=== PATIENT | female | born 1960 | race Caucasian/White ===

== ENCOUNTER 2022-03-08 17:25 | Emergency (ER) | payer OTHER, BC ==
[2022-03-08] MEDS ORDERED: Ketorolac 30 MG/ML SDV IM ONE (18:07)
[2022-03-08] MEDS ORDERED: Ondansetron 4 MG Tab.DIS PO ONE (18:07)
[2022-03-08] MEDS ORDERED: Cyclobenzaprine 10 MG Tab PO ONE (18:08)
== END 2022-03-08 20:43 | disposition home or self-care (01) ==
LOC: JP.ED 17:25
DX: S20.212A Contusion of left front wall of thorax, initial encounter (principal); M54.2 Cervicalgia; J45.909 Unspecified asthma, uncomplicated; I10 Essential (primary) hypertension; E03.9 Hypothyroidism, unspecified; Z86.16 Personal history of COVID-19; Z79.899 Other long term (current) drug therapy; Z88.8 Allergy status to other drugs, medicaments and biological substances; Z91.018 Allergy to other foods; Z88.6 Allergy status to analgesic agent; W18.39XA Other fall on same level, initial encounter
CPT/HCPCS: 71250; 72125; 74176; 96372; 99282; 99283; A9270; J1885; Q0162

== ENCOUNTER 2022-09-20 13:55 | Emergency (ER) | payer SELFPAY ==
[2022-09-20] MEDS ORDERED: Sodium Chloride 0.9% 10 ML Syringe FLUSH PRN (14:10)
[2022-09-20 14:45] LABS: TROPONIN I HIGH SENSITIVITY 4.2 pg/mL (<=60.3)
== END 2022-09-20 17:10 | disposition home or self-care (01) ==
LOC: JP.ED 13:55
DX: R07.89 Other chest pain (principal); I10 Essential (primary) hypertension; E03.9 Hypothyroidism, unspecified; Z86.16 Personal history of COVID-19; Z88.5 Allergy status to narcotic agent; Z91.048 Other nonmedicinal substance allergy status; Z88.8 Allergy status to other drugs, medicaments and biological substances; Z79.899 Other long term (current) drug therapy
CPT/HCPCS: 36415; 71045; 71045-26; 80048; 84484; 85025; 99285

== ENCOUNTER 2024-06-14 17:01 | Emergency (ER) | payer BC, OTHER ==
[2024-06-14] MEDS: Bacitracin Oint 1 GM U/D Packet TOP ONE (18:34)
== END 2024-06-14 18:42 | disposition home or self-care (01) ==
LOC: JP.ED 17:01
DX: S50.11XA Contusion of right forearm, initial encounter (principal); I10 Essential (primary) hypertension; E03.9 Hypothyroidism, unspecified; Z79.890 Hormone replacement therapy; Z79.899 Other long term (current) drug therapy; Z91.018 Allergy to other foods; Z88.8 Allergy status to other drugs, medicaments and biological substances; Z88.5 Allergy status to narcotic agent; W23.1XXA Caught, crushed, jammed, or pinched between stationary objects, initial encounter
CPT/HCPCS: 73090-26-RT; 73090-RT; 99283

== ENCOUNTER 2025-07-23 19:40 | Emergency (ER) | payer OTHER ==
[2025-07-23] MEDS: Ketorolac 30 MG/ML SDV IM ONE (21:03)
== END 2025-07-23 22:33 | disposition home or self-care (01) ==
LOC: JP.ED 19:40
DX: S52.255A Nondisplaced comminuted fracture of shaft of ulna, left arm, initial encounter for closed fracture (principal); I10 Essential (primary) hypertension; E78.00 Pure hypercholesterolemia, unspecified; Z88.8 Allergy status to other drugs, medicaments and biological substances; Z88.5 Allergy status to narcotic agent; Z91.048 Other nonmedicinal substance allergy status; Z79.899 Other long term (current) drug therapy; Z79.890 Hormone replacement therapy; Y92.012 Bathroom of single-family (private) house as the place of occurrence of the external cause
CPT/HCPCS: 29125; 73090; 96372; 99283; J1885

== ENCOUNTER 2025-07-24 09:21 | Emergency (ER) | payer OTHER | END 2025-07-24 10:43 | disposition home or self-care (01) | LOC: JP.ED 09:21 | DX: Z47.89 Encounter for other orthopedic aftercare (principal); I10 Essential (primary) hypertension; E78.00 Pure hypercholesterolemia, unspecified; J45.909 Unspecified asthma, uncomplicated; E03.9 Hypothyroidism, unspecified; Z88.5 Allergy status to narcotic agent; Z88.8 Allergy status to other drugs, medicaments and biological substances; Z91.018 Allergy to other foods; Z79.890 Hormone replacement therapy; Z79.899 Other long term (current) drug therapy | CPT/HCPCS: 99282 ==

== ENCOUNTER 2025-08-21 08:19 | Day surgery (SDC) | payer OTHER ==
[~2025-08-21 08:19] MED LIST: Dexamethasone 4 MG/ML SDV ONE; Ondansetron 4 MG/2 ML SDV ONE; Propofol 200 MG/20 ML SDV ONE; Succinylcholine 200 MG/10 ML MDV ONE; fentaNYL 250 MCG/5 ML SDV ONE
[2025-08-21 08:56] LABS: PLATELET COUNT,PLT 265.0 K/uL (130-375); RED BLOOD CELL COUNT 4.56 M/uL (3.77-5.24); WHITE BLOOD CELL COUNT,WBC 5.9 K/uL (3.2-11.0)
[2025-08-21 09:11] LABS: BLOOD UREA NITROGEN,BUN 14.0 mg/dL (7-18); CARBON DIOXIDE,CO2 31.0 mmol/L (21-32); CHLORIDE,CL 103.0 mmol/L (100-108); CREATININE 0.9 mg/dL (0.6-1.0); EST CRCL DRUG DOSING (CG) 57.57 mL/min; ESTIMATED GFR 72.0 mL/min (>60); GLUCOSE RANDOM 93.0 mg/dL (74-106); POTASSIUM,K 3.8 mmol/L (3.6-5.2); SODIUM,NA 142.0 mmol/L (140-148)
[2025-08-21] MEDS: Nozin Nasal Sanitizer NASBOTH ONE (09:11)
[2025-08-21] MEDS: Lactated Ringers 1,000 ML IV SCH (09:11)
[2025-08-21] MEDS: fentaNYL 50 MCG/ML SDV IVPUSH ONE (12:13)
[2025-08-21] MEDS: Acetaminophen/HYDROcodone 325-5 MG Tab PO PRN (13:06)
== END 2025-08-21 14:27 | disposition home or self-care (01) ==
LOC: JP.SDS 08:19
PROVIDERS: ATTEND Specialist
DX: S52.202S Unspecified fracture of shaft of left ulna, sequela (principal)
CPT/HCPCS: 36415; 76000; 80048; 85027; 93005; 93010; A9270; C1713; C1776; J0665; J0690; J1100; J2405; J2704; J3010; J7120; J0330; J3490

== ENCOUNTER 2025-09-01 14:32 | Emergency (ER) | payer OTHER ==
[2025-09-01 16:01] LABS: BASOPHILS ABSOLUTE AUTO 0.04 K/uL (0.00-0.10); BASOPHILS PERCENT AUTO 0.5 % (0.1-1.3); EOSINOPHILS ABSOLUTE AUTO 0.38 K/uL (0.00-0.40); EOSINOPHILS PERCENT AUTO 4.8 % (0.0-5.4); IMMATURE GRAN ABSOLUTE AUTO 0.03 K/uL (0.00-0.23); IMMATURE GRAN PERCENT AUTO 0.4 % (0.0-0.7); LYMPHOCYTES ABSOLUTE AUTO 2.54 K/uL (0.8-3.3); LYMPHOCYTES PERCENT AUTO 32.2 % (11.4-47.7); MONOCYTES ABSOLUTE AUTO 0.58 K/uL (0.20-0.90); MONOCYTES PERCENT AUTO 7.4 % (3.3-12.6); NEUTROPHILS ABSOLUTE AUTO 4.32 K/uL (1.0-7.6); NEUTROPHILS PERCENT AUTO 54.7 % (40.0-78.1); PLATELET COUNT,PLT 276 K/uL (130-375); RED BLOOD CELL COUNT 4.26 M/uL (3.77-5.24); WHITE BLOOD CELL COUNT,WBC 7.9 K/uL (3.2-11.0)
[2025-09-01 16:22] LABS: A/G RATIO 1.2 (1.2-2.2); ALANINE AMINOTRANSFERASE,ALT 47 U/L (12-78); ASPARTATE AMNIOTRANSFERASE,AST 17 U/L (15-37); BILIRUBIN TOTAL 0.4 mg/dL (0.2-1.0); BLOOD UREA NITROGEN,BUN 23 mg/dL (7-18); CARBON DIOXIDE,CO2 30 mmol/L (21-32); CHLORIDE,CL 104 mmol/L (100-108); CREATININE 0.8 mg/dL (0.6-1.0); EST CRCL DRUG DOSING (CG) 64.77 mL/min; ESTIMATED GFR 83 mL/min (>60); GLUCOSE RANDOM 97 mg/dL (74-106); POTASSIUM,K 3.9 mmol/L (3.6-5.2); PROTEIN TOTAL,TP 7.1 g/dL (6.4-8.2); SODIUM,NA 141 mmol/L (140-148)
== END 2025-09-01 17:06 | disposition home or self-care (01) ==
LOC: JP.ED 14:32
DX: J45.909 Unspecified asthma, uncomplicated (principal); I10 Essential (primary) hypertension; E78.00 Pure hypercholesterolemia, unspecified; E03.9 Hypothyroidism, unspecified; Z79.899 Other long term (current) drug therapy; Z79.890 Hormone replacement therapy; Z88.8 Allergy status to other drugs, medicaments and biological substances; Z91.018 Allergy to other foods; Z88.5 Allergy status to narcotic agent
CPT/HCPCS: 36415; 71046; 80053; 85025; 93005; 94640; 99285; J7620; A9270-GY